=== PATIENT | male | born 1940 | race Caucasian/White ===

== ENCOUNTER 2018-09-26 11:31 | Day surgery (SDC) | payer MEDICARE, BC ==
[2018-09-19 12:25] LABS: BASOPHILS % (AUTO) 0.4 % (0-1); EOSINOPHILS # (AUTO) 0.5 X10'3 (0-0.9); EOSINOPHILS % (AUTO) 7.6 % (0-6); LYMPHOCYTES # (AUTO) 1.1 X10'3 (1.1-4.8); LYMPHOCYTES % (AUTO) 18.7 % (21-51); MEAN CORPUSCULAR HEMOGLOBIN 31.4 PG (27.0-31.0); MEAN CORPUSCULAR HGB CONC 33.7 % (33.0-36.5); MEAN CORPUSCULAR VOLUME 93.3 FL (78-98); MONOCYTES # (AUTO) 0.7 X10'3 (0-0.9); MONOCYTES % (AUTO) 11.2 % (2-12); NEUTROPHILS # (AUTO) 3.7 X10'3 (1.8-7.7); NEUTROPHILS % (AUTO) 62.1 % (42-75); PRE OP HEMATOCRIT 36.2 % (42.0-52.0); PRE OP HEMOGLOBIN 12.2 g/dL (14.0-17.9); PRE OP PLATELET COUNT 124 X10'3 (140-440); RED BLOOD COUNT 3.88 X10'6 (4.70-6.10)
[2018-09-19 12:56] LABS: ALBUMIN 3.3 G/DL (3.4-5.0); ALKALINE PHOSPHATASE 68 IU/L (46-116); BLOOD UREA NITROGEN 28 MG/DL (7-18); BUN/CREATININE RATIO 25.7 (5.4-32.0); CALCIUM 8.9 MG/DL (8.5-10.1); CHLORIDE 106 MMOL/L (99-107); CREATININE 1.09 MG/DL (0.60-1.10); PRE OP ALT 27 U/L (30-65); PRE OP ANION GAP 6 (8-16); PRE OP AST 25 U/L (10-37); PRE OP BILIRUB, TOTAL 0.5 MG/DL (0.0-1.0); PRE OP GLUCOSE 101 MG/DL (70-104); PRE OP POTASSIUM 3.7 MMOL/L (3.4-5.1); PRE OP SODIUM 143 MMOL/L (135-145); TOTAL CARBON DIOXIDE 31.4 MMOL/L (24-32); TOTAL PROTEIN 6.5 G/DL (6.4-8.2); eGFR 65 ML/MIN
[2018-09-19 13:00] LABS: HEMOGLOBIN A1C 5.6 % (4.5-6.2)
[2018-09-19 13:19] LABS: PRE OP INR 1.2 INR; PRE OP PROTIME 11.6 SECONDS (9.0-12.0)
[~2018-09-26] VITALS: Ht 168.9 cm; Wt 109.5 kg
[2018-09-26] VITALS (18 sets, daily range): BP systolic 154–220; BP diastolic 73–97
[~2018-09-26 11:31] MED LIST: ASCO500C15 PO; BENA1TAB14 PO; CARV-50 PO; CHLO500T3 PO; CHOL10002 PO; CLON0.1T PO; DILT300C26; DOCUMENT DATE & TIME OF BETA-BLOCKER PO ONE; FINA5TAB11 PO; FISH OIL; FURO20TA4 PO; HYDR-3972 PO; LACT1CAP65 PO; LEVO100T PO; LIFI1DRO EACHEYE; MULT1TAB74 PO; NAPR-996 PO; NORT25CA PO; OMEP20CA10 PO; PIOG30TA71 PO; POTA10CA44 PO; POTA20TA19 PO; TERA10CA4 PO; ceFAZolin 1,000 MG/D5W 50ML IVPB Premixed bag IV ONE; famotidine 20mg tablet PO ONE; meperidine/PF 25mg/ml syringe IV PRN; morphine 4 MG/ML inj SYRINge IV PRN; ondansetron/PF 4mg/2ml inj IV PRN; proCHLORperazine 10 MG/2 ml inj IV PRN; ringers solution, lacted 1,000 ML IV SCH
[2018-09-26] MEDS ORDERED: fentaNYL/PF 50MCG/1 ML 2ML syringe ONE (14:37)
[2018-09-26] MEDS ORDERED: MIDAZolam 5mg/5ml vial ONE (14:38)
[2018-09-26] MEDS ORDERED: BUPIVAcaine/dex-water/PF 7.5 mg/ml 2ml ampul ONE (14:38)
[2018-09-26] MEDS: potassium cl 20mEq in 1/2 NS 1,000 ML IV SCH ×2 (15:37→20:32)
[2018-09-26] MEDS ORDERED: acetaminophen 325mg tablet PO PRN (15:40)
[2018-09-26] MEDS ORDERED: proCHLORperazine 10 MG/2 ml inj IV PRN (15:40)
[2018-09-26] MEDS ORDERED: oxybutynin 5mg tablet PO PRN (15:40)
[2018-09-26] MEDS ORDERED: zolpidem 5mg tablet PO PRN (15:40)
[2018-09-26] MEDS ORDERED: mag hydrox/Alum hydrox/simeth 30ml oral suspension PO PRN (15:40)
[2018-09-26] MEDS ORDERED: ondansetron/PF 4mg/2ml inj IV PRN (15:40)
--- NOTE | 2018-09-26 15:43 | NUR ---
Received from OR via SURGICAL BED , accompanied by Anesthesiologist PENNY and report given by Anesthesiolgist. PATIENT WITH 18G PIVIN RIGHT UE RUNNIG LR AT 100. RETANA CATHETER [address] WITH IRRIGATION RUNNING. LIGHT PINK URINE PRESENT IN TUBING. 3L NASAL CANNULA RUNNING. 98% SATURATIONS. VSS, MERCED GUNDERSON PRESENT. SANDI MARSH DONNED WELL SCDS BILATERALLY. T 11 SENSATION AT THIS TIME FROM SPINAL ANESTHESIA. Addendum: 09/26/18 at 1559 by Jamie Alejandre RN, RN Amended: Links added.
[2018-09-26] MEDS ORDERED: HYDROcodone/acetaminophen 10/325mg tab PO PRN ×3 (15:45)
[2018-09-26] MEDS ORDERED: ceFAZolin inj. 1,000 MG in dextrose 5%-water 50ml 50 ML IV SCH (16:00)
[2018-09-26] MEDS ORDERED: enalaprilat dihydrate 2.5mg/2ml vial IV ONE (16:10)
[2018-09-26] MEDS ORDERED: cyclobenzaprine 10mg tablet PO PRN (16:10)
[2018-09-26] MEDS ORDERED: enalaprilat dihydrate 2.5mg/2ml vial IV PRN (16:15)
--- NOTE | 2018-09-26 16:26 | NUR ---
Received report from Jamie in recovery. Pt has not met criteria for transfer.. Recovery does not have ancef so 1600 med will be given on arrival to unit.
--- NOTE | 2018-09-26 16:53 | NUR ---
ALL CRITERIA FOR TRANSFER TO THE FLOOR HAS BEEN ACHIEVED. VSS. BED LOW, CALL LIGHT AND VS. SET IN PLACE. RN PRESENT TO ACCEPT CARE. PATIENT RESTING COMFORTABLY IN BED. BELONGINGS SENT WITH PATIENT. DRESSINGS CDI. SARAH WICK PRESENT TO ACCEPT CARE. VSS, URINE PINK COLORED FROM IRRIGATION. CALL LIGHT, O2, VS AND ALL LINES CONNECTED, TWO BAGS AND A CPAP IN A BAG IN ROOM WITH PATIENT 359B. Addendum: 09/26/18 at 1714 by Jamie Zamorano - SARAH SMITH Amended: Links added.
[2018-09-26] MEDS: hydrALAZINE 20mg/ml inj. IV PRN ×2 (17:56→23:44)
--- NOTE | 2018-09-26 17:59 | NUR ---
Received pt to room 1700 via bed. [id number], Jamie informs Nsg Dr Paz is OK with. After turning for skin check BP increased to 215/115 and did not improve with rest. Pt C/o small bladder spasm. Gave Ditropan, and Called Dr Valdez as Dr Paz Anesthesia was no longer in hospital, Orders rec'd And Hydralazine give. Attempted to give 2000 meds per MD but pharmacy has not transfered them to be available in the [facility]. Report to Noc RN to continue to monitor BP.
--- NOTE | 2018-09-26 18:30 | NUR ---
Patient in room [facility] 359. I have received report from DELANO SMITH and had the opportunity to ask questions and assume patient care. PT LYING IN BED, FAMILY IN ROOM
--- NOTE | 2018-09-26 18:54 | NUR ---
Problems reprioritized. Patient report given, questions answered & plan of care reviewed with SARAH Vaughan.
[2018-09-26] MEDS: docusate sod 100mg capsule PO SCH (19:25)
[2018-09-26] MEDS: HYDROchlorothiazide 12.5mg capsule PO SCH (19:25)
[2018-09-26] MEDS: carVEDilol 12.5mg tablet PO SCH (19:25)
[2018-09-26] MEDS ORDERED: finasteride 5mg tablet PO SCH (21:00)
[2018-09-26] MEDS ORDERED: cloNIDine 0.1 mg tablet PO SCH (21:00)
[2018-09-26] MEDS ORDERED: potassium Cl 20 mEq SR tablet PO SCH (21:00)
[2018-09-26] MEDS ORDERED: nortriptyline 25mg capsule PO SCH (21:00)
[2018-09-26] MEDS ORDERED: terazosin 5mg capsule PO SCH (21:00)
[2018-09-26] MEDS: ceFAZolin 1GM/D5W- ADD-VANTAGE 50 ML IV SCH (23:44)
[2018-09-27] VITALS: BP 172/82
[2018-09-27 02:14] VITALS: BP 184/83
[2018-09-27] MEDS: potassium cl 20mEq in 1/2 NS 1,000 ML IV SCH (04:34)
[2018-09-27] MEDS: hydrALAZINE 20mg/ml inj. IV PRN (04:35)
[2018-09-27 05:00] VITALS: BP 160/54
--- NOTE | 2018-09-27 06:30 | NUR ---
Patient in room [facility] 359. I have received report from SARAH Ko and had the opportunity to ask questions and assume patient care.
[2018-09-27 06:40] LABS: BASOPHILS % (AUTO) 0.3 % (0-1); EOSINOPHILS # (AUTO) 0.5 X10'3 (0-0.9); EOSINOPHILS % (AUTO) 6.4 % (0-6); HEMATOCRIT 35.5 % (42.0-52.0); HEMOGLOBIN 12.4 g/dl (14.0-17.9); LYMPHOCYTES # (AUTO) 1.4 X10'3 (1.1-4.8); LYMPHOCYTES % (AUTO) 18.5 % (21-51); MEAN CORPUSCULAR HEMOGLOBIN 32.3 PG (27.0-31.0); MEAN CORPUSCULAR HGB CONC 34.8 % (33.0-36.5); MEAN CORPUSCULAR VOLUME 92.7 FL (78-98); MEAN PLATELET VOLUME 9.7 FL (7.4-10.4); MONOCYTES # (AUTO) 0.9 X10'3 (0-0.9); MONOCYTES % (AUTO) 11.3 % (2-12); NEUTROPHILS # (AUTO) 4.9 X10'3 (1.8-7.7); NEUTROPHILS % (AUTO) 63.5 % (42-75); PLATELET COUNT 136 X10'3 (140-440); RED BLOOD COUNT 3.83 X10'6 (4.70-6.10); RED CELL DISTRIBUTION WIDTH 12.8 % (11.5-14.5); WHITE BLOOD COUNT 7.7 X10'3 (4.5-11.0)
--- NOTE | 2018-09-27 06:49 | NUR ---
Problems reprioritized. Patient report given, questions answered & plan of care reviewed with Aleida SMITH
[2018-09-27 06:59] LABS: ALBUMIN 2.7 G/DL (3.4-5.0); ANION GAP 10 (8-16); BLOOD UREA NITROGEN 19 MG/DL (7-18); CALCIUM 8.3 MG/DL (8.5-10.1); CHLORIDE 106 MMOL/L (99-107); CREATININE 0.95 MG/DL (0.60-1.10); GLUCOSE 100 MG/DL (70-104); SODIUM 141 MMOL/L (135-145); TOTAL CARBON DIOXIDE 25.1 MMOL/L (24-32); eGFR 76 ML/MIN
[2018-09-27 07:00] VITALS: BP 162/73
[2018-09-27] MEDS: docusate sod 100mg capsule PO SCH (07:23)
[2018-09-27] MEDS: carVEDilol 12.5mg tablet PO SCH (07:24)
[2018-09-27] MEDS: HYDROchlorothiazide 12.5mg capsule PO SCH (07:24)
[2018-09-27] MEDS: ceFAZolin 1GM/D5W- ADD-VANTAGE 50 ML IV SCH (07:26)
[2018-09-27] MEDS ORDERED: pantoprazole 40mg Tablet.DR PO SCH (07:30)
[2018-09-27] MEDS ORDERED: potassium Cl 20 mEq SR tablet PO SCH (08:00)
[2018-09-27] MEDS ORDERED: lisinopril 20mg tablet PO SCH (08:00)
[2018-09-27] MEDS ORDERED: furosemide 20MG tablet PO SCH (08:00)
[2018-09-27] MEDS ORDERED: non-formulary drug (Omeprazole 1 CAP) PO SCH (08:00)
[2018-09-27] MEDS ORDERED: pioglitazone 15mg tablet PO SCH (08:00)
[2018-09-27] MEDS ORDERED: nortriptyline 25mg capsule PO SCH (08:00)
[2018-09-27] MEDS ORDERED: levoTHYROXINE 100mcg tablet PO SCH (08:00)
[2018-09-27 11:00] VITALS: BP 143/68
--- NOTE | 2018-09-27 12:55 | NUR ---
Per Dr Valdez request called him /999 K+ level result=3.4. Message left on voicemail (Office closed for holiday).
[2018-09-27] MEDS ORDERED: POTA10TA19 PO (14:36)
[2018-09-27] MEDS ORDERED: POTA10TA10 PO (14:54)
--- NOTE | 2018-09-27 15:53 | NUR ---
DC inst provided to pt & spouse. IV DC'd, tip intact. All belongings sent w/pt. WC to lobby.
[2018-09-27] MEDS ORDERED: diltiazem CD 300mg capsule (once-daily) PO SCH (21:00)
== END 2018-09-27 15:55 | disposition home or self-care (01) ==
LOC: PAS 11:31 → SUR 3N 17:02 → PAS 09-27 15:55
PROVIDERS: ATTEND Urology
DX: N40.1 Benign prostatic hyperplasia with lower urinary tract symptoms (principal); N13.8 Other obstructive and reflux uropathy; N41.1 Chronic prostatitis; N32.89 Other specified disorders of bladder; I45.19 Other right bundle-branch block; G47.33 Obstructive sleep apnea (adult) (pediatric); K21.9 Gastro-esophageal reflux disease without esophagitis; I10 Essential (primary) hypertension; E11.9 Type 2 diabetes mellitus without complications; E03.9 Hypothyroidism, unspecified; H91.8X3 Other specified hearing loss, bilateral; G89.29 Other chronic pain; G43.909 Migraine, unspecified, not intractable, without status migrainosus; M19.90 Unspecified osteoarthritis, unspecified site; E66.01 Morbid (severe) obesity due to excess calories; Z95.828 Presence of other vascular implants and grafts; Z88.2 Allergy status to sulfonamides; Z90.89 Acquired absence of other organs; Z91.041 Radiographic dye allergy status; Z79.891 Long term (current) use of opiate analgesic; Z68.38 Body mass index [BMI] 38.0-38.9, adult; Z72.89 Other problems related to lifestyle; Z88.8 Allergy status to other drugs, medicaments and biological substances; Z79.899 Other long term (current) drug therapy; Z98.890 Other specified postprocedural states
CPT/HCPCS: 36415; 52601; 80048; 80053; 82948; 83036; 84132; 84443; 85025; 85610; 85730; 86870; 86885; 86900; 86901; 93005; J0360; J0690; J2250; J3010; J3490; 88305; A4346; A4615; A7000; G0378; J7030; J7060; J7120

== ENCOUNTER 2025-07-08 09:58 | Day surgery (SDC) | payer MEDICARE, BC ==
[~2025-07-08] VITALS: Ht 170.2 cm; Wt 85.7 kg
[~2025-07-08 09:58] MED LIST changes: +ALLO100T PO; +AMLO10TA13 PO; -ASCO500C15 PO; -CHLO500T3 PO; -CHOL10002 PO; -CLON0.1T PO; -DILT300C26; -FINA5TAB11 PO; -FISH OIL; -HYDR-3972 PO; +IRON; +ISOS60TA71 PO; -LACT1CAP65 PO; -LEVO100T PO; +LIDOcaine 2% Viscous 15ml cup MM ONE; -LIFI1DRO EACHEYE; -MULT1TAB74 PO; -NAPR-996 PO; -OMEP20CA10 PO; -PIOG30TA71 PO; +POTA-207 PO; -POTA10CA44 PO; +POTA10CA95 PO; -POTA20TA19 PO; +SPIR25TA5 PO; -TERA10CA4 PO; +VITAMIN C; -ceFAZolin 1,000 MG/D5W 50ML IVPB Premixed bag IV ONE; -famotidine 20mg tablet PO ONE; -meperidine/PF 25mg/ml syringe IV PRN; -morphine 4 MG/ML inj SYRINge IV PRN; -ondansetron/PF 4mg/2ml inj IV PRN; -proCHLORperazine 10 MG/2 ml inj IV PRN
[2025-07-08] MEDS ORDERED: propofol inj 20 ML IV ONE (11:16)
[2025-07-08] MEDS ORDERED: LIDOcaine 1%/PF 5ML 10 MG/ML VIAL ONE (11:16)
[2025-07-08] MEDS ORDERED: fentaNYL/PF 50MCG/1 ML 2ML syringe ONE (11:16)
[2025-07-08 11:48] VITALS: BP 113/73; PULSE 78; RESP 16; O2SAT 100
[2025-07-08 12:00] VITALS: BP 117/72; PULSE 80; RESP 15; O2SAT 94
[2025-07-08 12:10] VITALS: BP 105/66; PULSE 82; RESP 16; O2SAT 91
[2025-07-08 12:20] VITALS: BP 113/77; PULSE 76; RESP 15; O2SAT 95
[2025-07-08 12:40] VITALS: BP 11/77; PULSE 80; RESP 15; O2SAT 95
--- NOTE | 2025-07-12 07:10 | PATHOLOGY REPORT ---
[facility] [address] [place] [address] SURGICAL PATHOLOGY REPORT CaseNumber: [id number] Surgeon:Parvin Ching M.D. CLINICAL INFORMATION CLINICAL INFORMATION: Dysphagia. DIAGNOSIS DIAGNOSIS: GASTRIC ANTRUM, BIOPSIES X 2 - NO SIGNIFICANT INFLAMMATION, EDEMA, OR VASCULAR CONGESTION - NO INTESTINAL METAPLASIA - NO DYSPLASIA OR MALIGNANCY - NO H. PYLORI ORGANISMS BY IMMUNOHISTOCHEMISTRY MICROSCOPIC DESCRIPTION MICROSCOPIC DESCRIPTION: Reviewed is a single H&E-stained slide showing serial sections and levels of two fragments of gastric antral-type mucosa. There is no significant inflammation, edema, or vascular congestion. There is no intestinal metaplasia. There are no dysplastic or neoplastic features. Also, no H. pylori organisms are highlighted by immunohistochemistry. GROSS DESCRIPTION GROSS DESCRIPTION: Received in a container of formalin labeled with the patient's name, number, and "antrum BX" are two pieces of díaz tissue 0.3 and 0.5 x 0.1 x 0.1 cm. The specimen is entirely submitted as A1. The time at which the specimen was removed was 1141. The time at which the specimen was placed in formalin was 1142. Electronically signed by: Greg White M.D. 07/11/2025 8:54:00 AM
== END 2025-07-08 12:48 | disposition home or self-care (01) ==
LOC: GI LAB 09:58
PROVIDERS: ATTEND Internal Medicine Gastroenterology
DX: R13.19 Other dysphagia (principal); K21.00 Gastro-esophageal reflux disease with esophagitis, without bleeding; K29.80 Duodenitis without bleeding; K25.9 Gastric ulcer, unspecified as acute or chronic, without hemorrhage or perforation; K31.89 Other diseases of stomach and duodenum; I12.9 Hypertensive chronic kidney disease with stage 1 through stage 4 chronic kidney disease, or unspecified chronic kidney disease; E11.22 Type 2 diabetes mellitus with diabetic chronic kidney disease; N18.9 Chronic kidney disease, unspecified; G47.33 Obstructive sleep apnea (adult) (pediatric); Z79.890 Hormone replacement therapy; Z79.891 Long term (current) use of opiate analgesic
CPT/HCPCS: 43239; A4618; A4620; A6402; A7000; J2704; J3010; J3490; J7120; Z7512; Z7610; A6449